=== PATIENT | female | born 1965 | race Caucasian/White ===

== ENCOUNTER 2021-09-17 09:17 | Emergency (ER) | payer OTHER ==
[~2021-09-17] VITALS: Ht 167.6 cm; Wt 53.5 kg
[~2021-09-17 09:17] MED LIST: FLOMAX0.4 MG PO; LEVOTHYROXINE75 MC1 PO; NORCO 5-325 TA1 EACH PO; ZOFRAN ODT4 MG PO
[2021-09-17 10:01] LABS: ABSOLUTE NEUTROPHILS 3.5 thou/uL (1.4-8.2); BASOPHILS 0.6 % (0.0-2.0); EOSINOPHILS 1.1 % (0.0-3.0); HEMATOCRIT 40.5 % (37.0-47.0); HEMOGLOBIN 13.6 gm/dL (12.0-15.0); LYMPHOCYTES 27.1 % (24.0-44.0); MCH 33.2 pg (26.0-34.0); MCHC 33.7 g/dL (28.0-37.0); MCV 98.6 fL (80.0-100.0); PLATELET COUNT 227 thou/uL (150-400); POLYS 63.2 % (36.0-66.0); RBC 4.11 mil/uL (4.20-5.00); RDW 12.2 % (10.5-14.5); WBC 5.5 thou/uL (4.0-11.0)
[2021-09-17 10:08] LABS: URINE BILIRUBIN NEGATIVE (Negative); URINE BLOOD 2+ (Negative); URINE CLARITY CLEAR; URINE COLOR YELLOW; URINE GLUCOSE-RANDOM* NEGATIVE (Negative); URINE KETONES NEGATIVE (Negative); URINE LEUKOCYTES-REFLEX TRACE (Negative); URINE NITRITE-REFLEX NEGATIVE (Negative); URINE PROTEIN (DIPSTICK) NEGATIVE (Negative); URINE SPECIFIC GRAVITY <= 1.005 (1.005-1.035); URINE UROBILINOGEN 0.2 E.U./dl (0.2-1.0)
[2021-09-17 10:10] LABS: CALCIUM 9.4 mg/dL (8.5-10.1); POTASSIUM 3.6 mmol/L (3.5-5.1)
[2021-09-17 10:17] LABS: ALBUMIN 4.3 g/dL (3.4-5.0); DIRECT BILIRUBIN 0.1 mg/dL (<0.1-0.2); TOTAL BILIRUBIN 0.5 mg/dL (0.2-1.0); TOTAL PROTEIN 7.1 g/dL (6.4-8.2)
[2021-09-17 10:53] LABS: BACTERIA-REFLEX None Seen /HPF (None Seen); CASTS None Seen /LPF (None Seen); CRYSTALS None Seen /LPF (None Seen); SQUAMOUS 0-3 Few /LPF (0-3); URINE RBC 1-2 Rare /HPF (NONE SEEN); URINE WBC-REFLEX 0-5 Rare /HPF (0-5)
[2021-09-17] MEDS ORDERED: ZOFRAN ODT4 MG PO (11:42)
[2021-09-17] MEDS ORDERED: PERCOCET 5-3251 EACH PO ×2 (11:42→12:06)
[2021-09-17 12:06] VITALS: BP 109/62
[2021-09-18] MEDS ORDERED: METOPROLOL TART25 MG PO (16:38)
[2021-09-18] MEDS ORDERED: FLUOXETINE HCL20 M1 PO (16:39)
== END 2021-09-17 12:30 ==
LOC: ER 09:17
PROVIDERS: Student in an Organized Health Care Education/Training Program
DX: N20.0 Calculus of kidney (principal); Z20.822 Contact with and (suspected) exposure to COVID-19; N13.30 Unspecified hydronephrosis; Z79.891 Long term (current) use of opiate analgesic; Z79.899 Other long term (current) drug therapy; Z88.1 Allergy status to other antibiotic agents; Z88.0 Allergy status to penicillin; Z88.2 Allergy status to sulfonamides; Z87.442 Personal history of urinary calculi